=== PATIENT | female | born 1955 | race American Indian/Alaskan Native ===

== ENCOUNTER 2018-11-03 14:39 | Inpatient (IN) | payer SELFPAY ==
[2018-11-03 15:41] LABS: Basophils # (Auto) 0.1 K/mm3 (0.0-0.1); Basophils % (Auto) 1.9 % (0.0-1.8); Eosinophils # (Auto) 0.4 K/mm3 (0.0-0.4); Eosinophils % (Auto) 6.7 % (0.0-4.3); Hematocrit 38.8 % (30.3-42.9); Hemoglobin 12.8 gm/dl (10.1-14.3); Lymphocytes # (Auto) 2.5 K/mm3 (1.2-5.4); Lymphocytes % (Auto) 42.2 % (13.4-35.0); Mean Corpuscular HGB Conc 33 % (30-34); Mean Corpuscular Volume 89 fl (79-97); Monocytes # (Auto) 0.5 K/mm3 (0.0-0.8); Monocytes % (Auto) 8.2 % (0.0-7.3); Platelet Count 197 K/mm3 (140-440); Red Blood Count 4.34 M/mm3 (3.65-5.03); Red Cell Distribution Width 12.6 % (13.2-15.2)
[2018-11-03 15:50] LABS: INR 1.01 (0.87-1.13); Partial Thromboplastin Time 22.2 Sec. (24.2-36.6)
[2018-11-03 15:56] LABS: BUN/Creatinine Ratio 12; Blood Urea Nitrogen 11 mg/dL (7-17); Calcium 8.7 mg/dL (8.4-10.2); Hemolysis Index 20
--- NOTE | 2018-11-03 16:48 | Emergency Department Report ---
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 Patient lives in [facility] [place] and just came here arrived here from [facility] on 10/02/2013. For the past week she states she has been having intermittent chills and subjective fevers without actually taking her temperature. She says the left side of her body feels warm". She has baseline weakness on the right side has worsened for the past one week particularly the right lower extremity. Family friend at the bedside and who is translating has noticed more difficulty in ambulation this week. Patient complains of a dry cough and intermittent headache. Denies nausea, vomiting, or diarrhea. Patient does not take an aspirin daily given history of ulcer. Denies history of bleeding ulcer. Patient takes amlodipine 10 mg daily for hypertension. - Related Data Allergies Allergy/AdvReac Type Severity Reaction Status Date / Time NSAIDS (Non-Steroidal AdvReac Unknown Verified 11/03/18 15:05 Anti-Inflamma ED Review of Systems ROS: Stated complaint: LFT SIDE WARM/COLD/NAUSEA Other details as noted in HPI Comment: All other systems reviewed and negative ED Past Medical Hx - Past Medical History Hx Hypertension: Yes Hx CVA: Yes (2014) Hx GERD: Yes (ulcers) - Surgical History Past Surgical History?: No - Social History Smoking Status: Never Smoker Substance Use Type: None ED Physical Exam - General Limitations: No Limitations - Other Other exam information: General: No limitations, patient is alert in no acute distress Head exam: Atraumatic, normocephalic Eyes exam: Normal appearance, pupils equal reactive to light, extraocular movements intact ENT: Moist mucous membrane Neck exam: Normal inspection, full range of motion, no meningismus nontender Respiratory exam: Clear to auscultation bilateral, no wheezes, rales, crackles Cardiovascular: Normal rate and rhythm, normal heart sounds Abdomen: Soft, nondistended, and nontender, with normal bowel sounds, no rebound, or guarding Extremity: Full range of motion normal inspection no deformity Back: Normal Inspection, full range of motion, no tenderness Neurologic: Alert, oriented x3, cranial nerves intact, right-sided sided weakness and decreased sensation compared to the left side Psychiatric: normal affect, normal mood Skin: Warm, dry, intact ED Course Vital Signs 11/03/18 11/03/18 11/03/18 14:58 16:24 17:19 Temperature 98.9 F Pulse Rate 72 63 72 Respiratory 20 16 16 Rate Blood Pressure 179/84 Blood Pressure 173/68 170/76 [Left] O2 Sat by Pulse 98 99 99 Oximetry 11/03/18 11/03/18 19:13 19:34 Temperature 98.3 F Pulse Rate 61 Respiratory 17 17 Rate Blood Pressure Blood Pressure 169/76 [Left] O2 Sat by Pulse 99 99 Oximetry ED Medical Decision Making - Lab Data Result diagrams: 11/03/18 15:22 11/03/18 15:22 Lab Results 11/03/18 11/03/18 11/03/18 Range/Units 15:22 15:22 15:22 WBC 6.0 (4.5-11.0) K/mm3 RBC 4.34 (3.65-5.03) M/mm3 Hgb 12.8 (10.1-14.3) gm/dl Hct 38.8 (30.3-42.9) % MCV 89 (79-97) fl MCH 29 (28-32) pg MCHC 33 (30-34) % RDW 12.6 L (13.2-15.2) % Plt Count 197 (140-440) K/mm3 Lymph % (Auto) 42.2 H (13.4-35.0) % [place] % (Auto) 8.2 H (0.0-7.3) % Eos % (Auto) 6.7 H (0.0-4.3) % Baso % (Auto) 1.9 H (0.0-1.8) % Lymph # 2.5 (1.2-5.4) K/mm3 [place] # 0.5 (0.0-0.8) K/mm3 Eos # 0.4 (0.0-0.4) K/mm3 Baso # 0.1 (0.0-0.1) K/mm3 Seg Neutrophils % 41.0 (40.0-70.0) % Seg Neutrophils # 2.4 (1.8-7.7) K/mm3 PT 13.7 (12.2-14.9) Sec. INR 1.01 (0.87-1.13) APTT 22.2 L (24.2-36.6) Sec. Thrombin Time (15.1-19.6) Sec. Sodium 141 (137-145) mmol/L Potassium 4.6 (3.6-5.0) mmol/L Chloride 105.7 (98-107) mmol/L Carbon Dioxide 23 (22-30) mmol/L Anion Gap 17 mmol/L BUN 11 (7-17) mg/dL Creatinine 0.9 (0.7-1.2) mg/dL Estimated GFR > 60 ml/min BUN/Creatinine Ratio 12 % Glucose 140 H (65-100) mg/dL Calcium 8.7 (8.4-10.2) mg/dL Total Bilirubin (0.1-1.2) mg/dL Direct Bilirubin (0-0.2) mg/dL Indirect Bilirubin mg/dL AST (5-40) units/L ALT (7-56) units/L Alkaline Phosphatase (35-129) units/L Lactate Dehydrogenase (91-180) units/L Troponin T < 0.010 (0.00-0.029) ng/mL Total Protein (6.3-8.2) g/dL Albumin (3.9-5) g/dL Albumin/Globulin Ratio % Urine Color (Yellow) Urine Turbidity (Clear) Urine pH (5.0-7.0) Ur Specific [place] (1.003-1.030) Urine Protein (Negative) mg/dL Urine Glucose (UA) (Negative) mg/dL Urine Ketones (Negative) mg/dL Urine Blood (Negative) Urine Nitrite (Negative) Urine Bilirubin (Negative) Urine Urobilinogen (<2.0) mg/dL Ur Leukocyte Esterase (Negative) Urine WBC (Auto) (0.0-6.0) /HPF Urine RBC (Auto) (0.0-6.0) /HPF U Epithel Cells (Auto) (0-13.0) /HPF Influenza A (Rapid) (Negative) Influenza B (Rapid) (Negative) 11/03/18 11/03/18 11/03/18 Range/Units 15:22 15:22 16:50 WBC (4.5-11.0) K/mm3 RBC (3.65-5.03) M/mm3 Hgb (10.1-14.3) gm/dl Hct (30.3-42.9) % MCV (79-97) fl MCH (28-32) pg MCHC (30-34) % RDW (13.2-15.2) % Plt Count (140-440) K/mm3 Lymph % (Auto) (13.4-35.0) % [place] % (Auto) (0.0-7.3) % Eos % (Auto) (0.0-4.3) % Baso % (Auto) (0.0-1.8) % Lymph # (1.2-5.4) K/mm3 [place] # (0.0-0.8) K/mm3 Eos # (0.0-0.4) K/mm3 Baso # (0.0-0.1) K/mm3 Seg Neutrophils % (40.0-70.0) % Seg Neutrophils # (1.8-7.7) K/mm3 PT (12.2-14.9) Sec. INR (0.87-1.13) APTT (24.2-36.6) Sec. Thrombin Time 16.9 (15.1-19.6) Sec. Sodium (137-145) mmol/L Potassium (3.6-5.0) mmol/L Chloride (98-107) mmol/L Carbon Dioxide (22-30) mmol/L Anion Gap mmol/L BUN (7-17) mg/dL Creatinine (0.7-1.2) mg/dL Estimated GFR ml/min BUN/Creatinine Ratio % Glucose (65-100) mg/dL Calcium (8.4-10.2) mg/dL Total Bilirubin 0.20 (0.1-1.2) mg/dL Direct Bilirubin < 0.2 (0-0.2) mg/dL Indirect Bilirubin 0.0 mg/dL AST 19 (5-40) units/L ALT 12 (7-56) units/L Alkaline Phosphatase 91 (35-129) units/L Lactate Dehydrogenase 173 (91-180) units/L Troponin T (0.00-0.029) ng/mL Total Protein 7.4 (6.3-8.2) g/dL Albumin 4.3 (3.9-5) g/dL Albumin/Globulin Ratio 1.4 % Urine Color Straw (Yellow) Urine Turbidity Clear (Clear) Urine pH 8.0 H (5.0-7.0) Ur Specific [place] 1.008 (1.003-1.030) Urine Protein <15 mg/dl (Negative) mg/dL Urine Glucose (UA) Neg (Negative) mg/dL Urine Ketones Neg (Negative) mg/dL Urine Blood Neg (Negative) Urine Nitrite Neg (Negative) Urine Bilirubin Neg (Negative) Urine Urobilinogen < 2.0 (<2.0) mg/dL Ur Leukocyte Esterase Neg (Negative) Urine WBC (Auto) 1.0 (0.0-6.0) /HPF Urine RBC (Auto) 1.0 (0.0-6.0) /HPF U Epithel Cells (Auto) < 1.0 (0-13.0) /HPF Influenza A (Rapid) (Negative) Influenza B (Rapid) (Negative) 11/03/18 Range/Units 18:00 WBC (4.5-11.0) K/mm3 RBC (3.65-5.03) M/mm3 Hgb (10.1-14.3) gm/dl Hct (30.3-42.9) % MCV (79-97) fl MCH (28-32) pg MCHC (30-34) % RDW (13.2-15.2) % Plt Count (140-440) K/mm3 Lymph % (Auto) (13.4-35.0) % [place] % (Auto) (0.0-7.3) % Eos % (Auto) (0.0-4.3) % Baso % (Auto) (0.0-1.8) % Lymph # (1.2-5.4) K/mm3 [place] # (0.0-0.8) K/mm3 Eos # (0.0-0.4) K/mm3 Baso # (0.0-0.1) K/mm3 Seg Neutrophils % (40.0-70.0) % Seg Neutrophils # (1.8-7.7) K/mm3 PT (12.2-14.9) Sec. INR (0.87-1.13) APTT (24.2-36.6) Sec. Thrombin Time (15.1-19.6) Sec. Sodium (137-145) mmol/L Potassium (3.6-5.0) mmol/L Chloride (98-107) mmol/L Carbon Dioxide (22-30) mmol/L Anion Gap mmol/L BUN (7-17) mg/dL Creatinine (0.7-1.2) mg/dL Estimated GFR ml/min BUN/Creatinine Ratio % Glucose (65-100) mg/dL Calcium (8.4-10.2) mg/dL Total Bilirubin (0.1-1.2) mg/dL Direct Bilirubin (0-0.2) mg/dL Indirect Bilirubin mg/dL AST (5-40) units/L ALT (7-56) units/L Alkaline Phosphatase (35-129) units/L Lactate Dehydrogenase (91-180) units/L Troponin T (0.00-0.029) ng/mL Total Protein (6.3-8.2) g/dL Albumin (3.9-5) g/dL Albumin/Globulin Ratio % Urine Color (Yellow) Urine Turbidity (Clear) Urine pH (5.0-7.0) Ur Specific [place] (1.003-1.030) Urine Protein (Negative) mg/dL Urine Glucose (UA) (Negative) mg/dL Urine Ketones (Negative) mg/dL Urine Blood (Negative) Urine Nitrite (Negative) Urine Bilirubin (Negative) Urine Urobilinogen (<2.0) mg/dL Ur Leukocyte Esterase (Negative) Urine WBC (Auto) (0.0-6.0) /HPF Urine RBC (Auto) (0.0-6.0) /HPF U Epithel Cells (Auto) (0-13.0) /HPF Influenza A (Rapid) Negative (Negative) Influenza B (Rapid) Negative (Negative) - EKG Data -: EKG Interpreted by Nc EKG shows normal: sinus rhythm, axis (qrs -6), QRS complexes (qrsd 102), ST-T waves (no steim) Rate: bradycardia (59) - EKG Data When compared to previous EKG there are: previous EKG unavailable - Radiology Data Radiology results: report reviewed CT head: No acute intracranial findings. Chronic ischemic disease. Bifrontal areas of encephalomalacia may be related to prior trauma or chronic ischemia. Left maxillary sinus disease. FINAL REPORT EXAM: XR CHEST ROUTINE 2V HISTORY: cough TECHNIQUE: PA and lateral views of the chest PRIORS: None. FINDINGS: Lines, tubes, and devices: N/A Lungs and pleura: Trachea is normal in position. Lungs are clear of infiltrate, pleural effusion, vascular congestion, or pneumothorax. Cardiomediastinal silhouette: Cardiac and mediastinal silhouettes are unremarkable. Other: Bony structures are intact. IMPRESSION: No acute cardiopulmonary process seen. - Medical Decision Making Patient presents to the ED with worsening right-sided weakness compared to baseline. CT does show signs of ischemia. I'm unsure if patient has acute or chronic CVA symptoms. Patient also reports infectious symptoms. No signs of fever, leukocytosis, sepsis or identified source. Initial malaria smear is negative. Patient will be admitted to the hospitalist service for further evaluation secondary to reported worsening right-sided weakness. The patient did receive enteric-coated aspirin and Pepcid. - Differential Diagnosis viral syndrome, malaria, CVA, Critical Care Time: No Critical care attestation.: If time is entered above; I have spent that time in minutes in the direct care of this critically ill patient, excluding procedure time. ED Disposition Clinical Impression: Weakness of right side of body, History of CVA with residual deficit, HTN (hypertension), Viral infection, Left maxillary sinusitis Disposition: DC-09 OP ADMIT IP TO THIS HOSP Is pt being admited?: Yes Does the pt Need Aspirin: No Condition: Stable Time of Disposition: 19:37 (Dr Rahman/hosp) - Assessment Assessment Interval: Baseline - Level of Consciousness 1a. Level of Consciousness: alert/keenly responsive - LOC Questions 1b. LOC Questions: answers both correctly - LOC Command 1c. LOC Commands: performs tasks correctly - Best Gaze 2. Best Gaze: normal - Visual 3. Visual: no visual loss - Facial Palsy 4. Facial Palsy: normal symmetrical movement - Motor Arm 5b. Motor Arm Right: drift 5a. Motor Arm Left: no drift - Motor Leg 6b. Motor Leg Right: drift 6a. Motor Leg Left: no drift - Limb Ataxia 7. Limb Ataxia: present 1 limb - Sensory 8. Sensory: mild/moderate sensory loss - Best Language 9. Best Language: no aphasia - Dysarthria 10. Dysarthria: normal - Extinction and Inattention 11. Extinction/Inattention: no abnormality - Scoring Total Score: 4 Stroke Severity: Minor Stroke
--- NOTE | 2018-11-03 16:56 | Cat Scan Report ---
FINAL REPORT EXAM: CT HEAD/BRAIN WO CON HISTORY: neuro deficits <6hrs or sx present upon awakening TECHNIQUE: CT of the Head without IV contrast. PRIORS: None currently available. FINDINGS: Decreased attenuation regions in the periventricular and subcortical white matter are nonspecific and may represent small vessel ischemic disease, encephalopathy, edema, or a demyelinating process. Smal l vessel ischemic disease (leukoaroaiosis) favored. Vascular calcifications. Small focal areas in the right and left frontal lobes may be related to chronic ischemia or prior tra irene. There is no evidence for acute ischemia. There is no hemorrhage. There is no midline shift. There is no hydrocephalus. There is no mass. Age appropriate zavala-white matter attenuation is noted. There is no calvarial fracture. The temporal bones demonstrate aerated mastoid air cells. The middle ears appear unremarkable. Paranasal sinuses are unremarkable. Globes are intact. IMPRESSION: No acute intracranial findings. Chronic ischemic disease. Bifrontal areas of encephalomalacia may be related to prior trauma or chronic ischemia.
[2018-11-03 17:10] LABS: Alanine Aminotransferase 12 units/L (7-56); Albumin 4.3 g/dL (3.9-5)
[2018-11-03 17:20] LABS: Bilirubin,Direct < 0.2 mg/dL (0-0.2)
[2018-11-03 17:22] LABS: Bilirubin,Urine NEG (Negative); Blood,Urine NEG (Negative); Color,Urine Straw (Yellow); Protein,Urine <15 mg/dL mg/dL (Negative); Urobilinogen,Urine < 2.0 mg/dL (<2.0)
--- NOTE | 2018-11-03 18:30 | XRay Report ---
FINAL REPORT EXAM: XR CHEST ROUTINE 2V HISTORY: cough TECHNIQUE: PA and lateral views of the chest PRIORS: None. FINDINGS: Lines, tubes, and devices: N/A Lungs and pleura: Trachea is normal in position. Lungs are clear of infiltrate, pleural effusion, va scular congestion, or pneumothorax. Cardiomediastinal silhouette: Cardiac and mediastinal silhouettes are unremarkable. Other: Bony structures are intact. IMPRESSION: No acute cardiopulmonary process seen.
[2018-11-03] MEDS ORDERED: PEPCID IV ONE (19:40)
[2018-11-03] MEDS ORDERED: ECOTRIN PO ONE (19:40)
[2018-11-03] MEDS ORDERED: TYLENOL PO PRN (22:45)
[2018-11-03] MEDS ORDERED: ZOFRAN IV PRN (22:47)
[2018-11-04] MEDS ORDERED: PNEUMOVAX 23 IM ONE ×2 (06:00→12:00)
[2018-11-04] MEDS ORDERED: AFLURIA QUAD 2018-2019 SYRINGE IM ONE ×2 (06:00→12:00)
--- NOTE | 2018-11-04 08:24 | History and Physical Report ---
CHIEF COMPLAINT: Weakness on the right side of the body. OTHER COMPLAINT: Includes congestion. HISTORY OF PRESENT ILLNESS: The patient is a 63-year-old female with past history of cerebrovascular accident and right-sided weakness who came to the hospital complaining of worsening right-sided weakness and also upper respiratory tract infection symptoms like congestion and subjective fever as well as cough. There is no history of chest pain, but there is history of chills and fever. The patient also denied history of nausea or vomiting, and stated that the cough is dry. There is intermittent headache. PAST MEDICAL HISTORY: Pertinent for cerebrovascular accident with right-sided weakness, gastroesophageal reflux disease, and hypertension. PAST SURGICAL HISTORY: Unremarkable. FAMILY HISTORY: Noncontributory. SOCIAL HISTORY: The patient lives with family. Does not smoke, does not drink alcohol and does not use illicit drugs. MEDICATIONS: The patient's home medications are not known. ALLERGIES: THE PATIENT IS ALLERGIC TO NONSTEROIDAL ANTINFLAMMATORY AGENTS. REVIEW OF SYSTEMS: CONSTITUTIONAL: There is fever. There are chills. No diaphoresis. HEENT: There is headache with no sore throat. CARDIOVASCULAR SYSTEM: There is no chest pain or orthopnea. RESPIRATORY SYSTEM: There is dry cough with no shortness of breath. GASTROINTESTINAL SYSTEM: There is no nausea, no vomiting, no abdominal pain, diarrhea or constipation. NEUROLOGICAL SYSTEM: There is no numbness, no dizziness, no altered mental status. There is weakness on the right side of the body compared to the left. MUSCULOSKELETAL SYSTEM: There is no joint pain or swelling. DERMATOLOGICAL SYSTEM: There is no skin rash or itching. GENITOURINARY SYSTEM: There is no dysuria, hematuria or flank pain. Rest of system review is normal. PHYSICAL EXAMINATION: GENERAL: At the time of exam, the patient was found to be alert, oriented x 3, and not in acute distress. VITAL SIGNS: At the initial time of presentation show temperature of 98.9 degrees Fahrenheit, pulse of 72, respiration 20, blood pressure 179/84, O2 sat of 98% on room. HEENT: Show pupils to be equal, round, reactive to light and accommodating. Extraocular muscles are intact. NECK: Supple with no JVD or carotid bruit. CARDIOVASCULAR SYSTEM: Show normal first and second heart sounds with no gallops or murmurs. RESPIRATORY SYSTEM: Show good air entry on both sides of the lungs with no abnormal breath sounds. GASTROINTESTINAL SYSTEM: Show abdomen to be full, soft, nontender with no organomegaly or rigidity. NEUROLOGIC: Show weakness on the right side of the body compared to the left with muscle strength of 4/6 on the right compared to 6/6 on the left. There is no loss of sensory function. MUSCULOSKELETAL SYSTEM: Show no joint swelling or tenderness. DERMATOLOGICAL SYSTEM: Show no skin rash. GENITOURINARY SYSTEM: Showing no costovertebral angle tenderness. PERTINENT IMAGING STUDIES: The patient had chest x-ray done that showed no acute cardiopulmonary lesion. The patient also has CT of the head without contrast done that showed no acute intracranial findings, but there is finding of chronic ischemic disease and bifrontal area of encephalomalacia was found and the radiologist say may be related to prior trauma or chronic ischemia. There is also finding of left maxillary sinus disease. LABORATORY RESULTS: The patient has CBC done that came back unremarkable except for elevated lymphocyte count of 42.2% and elevated monocyte count of 8.2 and elevated eosinophil count of 6.7% on CBC differential. The patient's coagulation studies were unremarkable. Chemistry came back unremarkable. Urinalysis was unremarkable. Serology test for influenza came back negative. DIAGNOSES: 1. Right-sided weakness. 2. Viral infection. PLAN OF ACTION: 1. The patient will be admitted to telemetry. 2. The patient will have MRI of the brain without contrast done this morning. 3. The patient will have Neurology consult with Dr. Christina Chapman for worsening right-sided weakness and we will have physical therapy consult for evaluation and treatment. 4. The patient will be n.p.o. until swallow test is passed. 5. The patient will be on p.r.n. medications like Tylenol 650 mg by mouth every 4 hours for fever and headache and will be on IV Zofran 4 mg every 8 hours for nausea and vomiting. The patient will also be on Robitussin 200 mg every 4 hours as needed for cough. 6. The patient's home medications will be started after they are known and reconciled. The patient will continue on oxygen by nasal cannula at 2 liter per minute. JOB# [id number] OCN/NTS
[2018-11-04] MEDS ORDERED: ROBITUSSIN PO PRN (09:00)
--- NOTE | 2018-11-04 12:52 | Progress Note ---
Assessment and Plan Assessment and plan: --Acute CVA vs Ac on chronic CVA: Patient not a candidate for TPA Aspirin and statin, neuro workup is in progress Physical therapy and occupational therapy rehabilitation Neurology following Workup so far MRI brain; no evidence of subacute acute infarct or hemorrhage, chronic infarcts noted, extensive bilateral chronic white matter disease, mild global atrophy, mild bilateral maxillary sinusitis MRA head without contrast; evidence of right MCA SUBGRADE TESTER atherosclerotic disease small-caliber left foot laterally which is most likely secondary to proximal stenosis CT head without contrast; no acute intracranial abnormality chronic ischemic changes bilateral areas of white matter microangiopathy may be related to prior trauma or chronic ischemia Carotid Doppler; Echocardiogram; --Bilateral maxillary sinusitis; supportive care, amoxicillin and antihistamines --Hypertension; moderate control, continue current antihypertensives and when necessary medications --DVT prophylaxis; Lovenox --DC planning. Case management Closely monitor the patient and adjust management as needed Possible discharge in 1-2 days if stable Plan of care reviewed through a bilingual family member Answered all their questions History Interval history: Patient seen and examined and medical records reviewed Admitted with acute CVA and right-sided weakness Patient feels slightly better Complains of mild headache, denies chest pain or shortness of breath Neuro workup is in progress Vital signs noted Hospitalist Physical - Constitutional Vitals: Temp Pulse Resp BP Pulse Ox 98.1 F 54 L 18 150/77 96 11/04/18 08:01 11/04/18 08:01 11/04/18 08:01 11/04/18 08:01 11/04/18 08:01 General appearance: Present: no acute distress, well-nourished - EENT Eyes: Present: PERRL, EOM intact - Neck Neck: Present: supple, normal ROM - Respiratory Respiratory effort: normal Respiratory: bilateral: diminished, negative: rales, rhonchi, wheezing - Cardiovascular Rhythm: regular Heart Sounds: Present: S1 & S2 - Extremities Extremities: no ischemia, No edema - Abdominal General gastrointestinal: soft, non-tender, non-distended, normal bowel sounds - Integumentary Integumentary: Present: clear, warm - Psychiatric Psychiatric: appropriate mood/affect, cooperative - Neurologic Neurologic: moves all extremities (right-sided weakness, speech clear) Results - Labs CBC & Chem 7: 11/03/18 15:22 11/03/18 15:22 Labs: Laboratory Last Values WBC 6.0 K/mm3 (4.5-11.0) 11/03/18 15:22 RBC 4.34 M/mm3 (3.65-5.03) 11/03/18 15:22 Hgb 12.8 gm/dl (10.1-14.3) 11/03/18 15:22 Hct 38.8 % (30.3-42.9) 11/03/18 15:22 MCV 89 fl (79-97) 11/03/18 15:22 MCH 29 pg (28-32) 11/03/18 15:22 MCHC 33 % (30-34) 11/03/18 15:22 RDW 12.6 % (13.2-15.2) L 11/03/18 15: Plt Count 197 K/mm3 (140-440) 11/03/18 15:22 Lymph % (Auto) 42.2 % (13.4-35.0) H 11/03/18 15:22 [place] % (Auto) 8.2 % (0.0-7.3) H 11/03/18 15:22 Eos % (Auto) 6.7 % (0.0-4.3) H 11/03/18 15:22 Baso % (Auto) 1.9 % (0.0-1.8) H 11/03/18 15:22 Lymph # 2.5 K/mm3 (1.2-5.4) 11/03/18 15:22 [place] # 0.5 K/mm3 (0.0-0.8) 11/03/18 15:22 Eos # 0.4 K/mm3 (0.0-0.4) 11/03/18 15:22 Baso # 0.1 K/mm3 (0.0-0.1) 11/03/18 15:22 Seg Neutrophils % 41.0 % (40.0-70.0) 11/03/18 15: Seg Neutrophils # 2.4 K/mm3 (1.8-7.7) 11/03/18 15:22 PT 13.7 Sec. (12.2-14.9) 11/03/18 15:22 INR 1.01 (0.87-1.13) 11/03/18 15:22 APTT 22.2 Sec. (24.2-36.6) L 11/03/18 15:22 Thrombin Time 16.9 Sec. (15.1-19.6) 11/03/18 15:22 Sodium 141 mmol/L (137-145) 11/03/18 15:22 Potassium 4.6 mmol/L (3.6-5.0) 11/03/18 15:22 Chloride 105.7 mmol/L (98-107) 11/03/18 15:22 Carbon Dioxide 23 mmol/L (22-30) 11/03/18 15:22 Anion Gap 17 mmol/L 11/03/18 15:22 BUN 11 mg/dL (7-17) 11/03/18 15:22 Creatinine 0.9 mg/dL (0.7-1.2) 11/03/18 15:22 Estimated GFR > 60 ml/min 11/03/18 15:22 BUN/Creatinine Ratio 12 % 11/03/18 15:22 Glucose 140 mg/dL (65-100) H 11/03/18 15:22 Calcium 8.7 mg/dL (8.4-10.2) 11/03/18 15:22 Total Bilirubin 0.20 mg/dL (0.1-1.2) 11/03/18 15:22 Direct Bilirubin < 0.2 mg/dL (0-0.2) 11/03/18 15:22 Indirect Bilirubin 0.0 mg/dL 11/03/18 15:22 AST 19 units/L (5-40) 11/03/18 15:22 ALT 12 units/L (7-56) 11/03/18 15:22 Alkaline Phosphatase 91 units/L (35-129) 11/03/18 15:22 Lactate Dehydrogenase 173 units/L (91-180) 11/03/18 15:22 Troponin T < 0.010 ng/mL (0.00-0.029) 11/03/18 15:22 Total Protein 7.4 g/dL (6.3-8.2) 11/03/18 15:22 Albumin 4.3 g/dL (3.9-5) 11/03/18 15:22 Albumin/Globulin Ratio 1.4 % 11/03/18 15:22 Urine Color Straw (Yellow) 11/03/18 16:50 Urine Turbidity Clear (Clear) 11/03/18 16:50 Urine pH 8.0 (5.0-7.0) H 11/03/18 16:50 Ur Specific [place] 1.008 (1.003-1.030) 11/03/18 16:50 Urine Protein <15 mg/dl mg/dL (Negative) 11/03/18 16:50 Urine Glucose (UA) Neg mg/dL (Negative) 11/03/18 16:50 Urine Ketones Neg mg/dL (Negative) 11/03/18 16:50 Urine Blood Neg (Negative) 11/03/18 16:50 Urine Nitrite Neg (Negative) 11/03/18 16:50 Urine Bilirubin Neg (Negative) 11/03/18 16:50 Urine Urobilinogen < 2.0 mg/dL (<2.0) 11/03/18 16:50 Ur Leukocyte Esterase Neg (Negative) 11/03/18 16:50 Urine WBC (Auto) 1.0 /HPF (0.0-6.0) 11/03/18 16:50 Urine RBC (Auto) 1.0 /HPF (0.0-6.0) 11/03/18 16:50 U Epithel Cells (Auto) < 1.0 /HPF (0-13.0) 11/03/18 16:50 Influenza A (Rapid) Negative (Negative) 11/03/18 18:00 Influenza B (Rapid) Negative (Negative) 11/03/18 18:00
--- NOTE | 2018-11-04 13:16 | Magnetic Resonance Report ---
MRI BRAIN WITHOUT CONTRAST: 11/04/18 CLINICAL: Right-sided weakness. COMPARISON: CT head 11/03/18 TECHNIQUE: Axial diffusion, T1, T2, gradient echo T2*, coronal and axial FLAIR and sagittal T1 sequences on a 1.5 Ana magnet. FINDINGS: The ventricles and sulci are slightly large for age. No restricted diffusion. Encephalomalacia involving the superior frontal gyrus of the left frontal lobe and extensive bilateral periventricular and subcortical white matter hyperintensities on FLAIR and T2. Right cerebellar atrophy and a few small chronic lacunar infarcts of the right cerebellum. No chronic microbleeds on the gradient echo sequence. No mass or mass effect. No hemorrhage, edema or extra-axial collection. The pituitary is small and the sella turcica is filled with CSF. The brainstem is normal. Intact vascular flow voids. Partial opacification of the left maxillary sinus and mild mucoperiosteal thickening of the right maxillary sinus. The orbits, and soft tissues are normal. Normal calvarium and skull base. IMPRESSION: 1. No evidence of acute/subacute infarct or hemorrhage. 2. Chronic infarct of the left frontal lobe involving the superior frontal gyrus. 3. Chronic lacunar infarcts of the right cerebellum and right cerebellar atrophy. 4. Extensive bilateral chronic white matter microangiopathy. 5. Mild global cortical atrophy. 6. Mild bilateral maxillary sinusitis.
--- NOTE | 2018-11-04 13:38 | Consultation ---
History of Present Illness Consult date: 11/04/18 Requesting physician: PADMINI CASTILLO Reason for Consult: increased right sided weakness History of present illness: 63 yr old female from [facility], presents with hx of stroke in 2015, which left her with a rt. hemiparesis, from which she recovered. Per her relative who is translating, she has had an increase in right-sided weakness over the past week, especially with more difficulty walking. She has had no falls. She takes her blood pressure medication only sporadically, if she feels a headache or other symptoms. She has no other medical problems. She has also complained of a feeling of heat going down the left side of her body. The pt. denies swallowing difficulty, dizziness, vertigo, numbness of face or extremities, chest pain or palpitations. Past History Past Medical History: hypertension Past Surgical History: No surgical history Social history: lives with family Family history: no significant family history Medications and Allergies Allergies Allergy/AdvReac Type Severity Reaction Status Date / Time NSAIDS (Non-Steroidal AdvReac Unknown Verified 11/03/18 15:05 Anti-Inflamma Home Medications Medication Instructions Recorded Confirmed Last Taken Type Amlodipine Besylate 10 mg PO BID 11/03/18 11/03/18 1 Day Ago History ~11/02/18 Active Meds: Active Medications Acetaminophen (Tylenol) 650 mg PO Q4H PRN PRN Reason: Fever >101 Atorvastatin Calcium (Lipitor) 40 mg PO QHS CANDICE Guaifenesin (Robitussin) 200 mg PO Q4H PRN PRN Reason: Cough Ondansetron HCl (Zofran) 4 mg IV Q8H PRN PRN Reason: Nausea And Vomiting Review of Systems All systems: negative (positive tinnitus) Physical Examination - Vital Signs Vital Signs: Vital Signs Temp Pulse Resp BP Pulse Ox 98.9 F 72 20 179/84 98 11/03/18 14:58 11/03/18 14:58 11/03/18 14:58 11/03/18 14:58 11/03/18 14:58 - Physical Exam Narrative exam: Neurological exam - Speech fluent in assinibo[place] and sioux language, per scheduling manager. computer systems technician - EOMs full, no nystagmus. Face with mild asymmetry, V-1 thru V-3 intact bilaterally. Hearing decreased in both ears, tongue midline. Motor - 5/5 on left. Right - finger extensors and intrinsic hand muscles - 4- /5. wrist extensors - 4/5. Deltoids - 3-/5 RLE - iliopsoas - 4/5, foot dorsiflexors - 4/5, plantar flexors - 4/5. ( Pt. gives questionable effort) Reflexes - trace throughout. Sensory - intact to touch and pin. Cerebellar - intact FTN, Mitesh, fine finger movements are slow on the right. Needs assistance to stand. Takes cautious steps. - Assessment Assessment Interval: Baseline - Level of Consciousness 1a. Level of Consciousness: alert/keenly responsive - LOC Questions 1b. LOC Questions: answers both correctly - LOC Command 1c. LOC Commands: performs tasks correctly - Best Gaze 2. Best Gaze: normal - Visual 3. Visual: no visual loss - Facial Palsy 4. Facial Palsy: normal symmetrical movement - Motor Arm 5b. Motor Arm Right: drift - Motor Leg 6a. Motor Leg Left: no drift - Limb Ataxia 7. Limb Ataxia: present 1 limb - Sensory 8. Sensory: mild/moderate sensory loss - Best Language 9. Best Language: no aphasia - Dysarthria 10. Dysarthria: normal - Extinction and Inattention 11. Extinction/Inattention: no abnormality Results - Laboratory Findings CBC and BMP: 11/03/18 15:22 11/03/18 15:22 Abnormal Lab Findings: Abnormal Labs 11/03/18 11/03/18 11/03/18 15:22 15:22 15:22 RDW 12.6 L Lymph % (Auto) 42.2 H [place] % (Auto) 8.2 H Eos % (Auto) 6.7 H Baso % (Auto) 1.9 H APTT 22.2 L Glucose 140 H Urine pH 11/03/18 16:50 RDW Lymph % (Auto) [place] % (Auto) Eos % (Auto) Baso % (Auto) APTT Glucose Urine pH 8.0 H Assessment and Plan 63 yr old female from [facility], presented to ER because of progressive weakness in the rt. extremities and difficulty walking. She has had a prior stroke which affected her rt. side in 2014 MRI scan confirms multiple lacunes including one in the left frontal lobe, most likely affecting her right side. There is also extensive small vessel disease. No signs of acute ischemia, however. The pt. may have slightly extended the previous infarct, but she also seems quite deconditioned.and in need of therapy. Plan - PT/OT coated aspirin and atorvastatin. encourage her to take her blood pressure meds. daily.
--- NOTE | 2018-11-04 15:00 | Magnetic Resonance Report ---
MRA HEAD WITHOUT CONTRAST: 11/03/18 19:41:00 CLINICAL: Right body weakness. TECHNIQUE: Axial 3-D [id number] MR angiography of the zuni of [place] with review of axial source images. FINDINGS: Intact zuni of [place] with no aneurysm or occlusion. A right proximal MCA stenosis with poststenotic dilatation. The left MARY A1 segment is hypoplastic. Relatively symmetric blood flow in the anterior and middle cerebral arteries. The right SUBJECT SCIENTIFIC RESEARCH is smaller than the left. Normal basilar and right vertebral arteries. The left vertebral artery is small. IMPRESSION: Evidence of right MCA and SUBJECT SCIENTIFIC RESEARCH atherosclerotic disease. Small caliber left vertebral artery which is most likely secondary to a proximal stenosis.
[2018-11-04] MEDS: TRIMOX PO SCH (21:43)
[2018-11-04] MEDS ORDERED: LOVENOX SUB-Q SCH (22:00)
[2018-11-05] MEDS: TRIMOX PO SCH (05:47)
[2018-11-05 08:45] VITALS: BP 130/81
[2018-11-05] MEDS ORDERED: ASPIRIN PO SCH (10:00)
[2018-11-05 10:02] LABS: Chol/HDL Ratio 3.92 %
--- NOTE | 2018-11-05 13:25 | Vascular Lab Report ---
FINAL REPORT EXAM: VL CAROTID DUPLEX BILAT HISTORY: possible CVA , previous CVA 2 years ago, hypertension TECHNIQUE: Ultrasound duplex arterial examination of the right neck vasculature Ultrasound duplex arterial examination of the left neck vasculature Degree of carotid stenosis calculated by indirect methods via the peak systolic velocities of the ICA and CCA and reference with the society of Radiologist and Ultrasound consensus conference radiology 2003. PRIORS: None. FINDINGS: Intimal thickening is noted bilaterally throughout the carotid artery system but no significant plaqu e or calcification is demonstrated. Peak systolic CCA and ICA velocities are within normal limits bilaterally. Estimated stenosis 0 to 49 %. ICA/CCA peak systolic ratios are within normal limits. Right ratio: 0.81 Left ratio: 1.65 No evidence of aneurysm or occlusion. Flow is antegrade in both vertebral arteries. IMPRESSION: Bilateral carotid artery atherosclerotic change with intimal thickening Less than 50 % ICA and CCA carotid stenosis by above-described criteria
--- NOTE | 2018-11-05 14:04 | Discharge Summary ---
Providers - Providers Date of Admission: 11/03/18 19:41 Date of discharge: 11/05/18 Attending physician: PADMINI CASTILLO 11/04/18 06:00 Consult to Physician [CONS] Routine Comment: GAIL Consulting Provider: BRAYAN ALANIZ Physician Instructions: NAMAN WAS NOTIFIED Reason For Exam: WORSENING RIGHT SIDED WEAKNESS Physical Therapy Evaluation and Treat [CONS] Routine Comment: Reason For Exam: WORSENING RIGHT SIDED WEAKNESS Primary care physician: ASSISTANT OCEANOGRAPHER Hospitalization Reason for admission: right-sided weakness Condition: Stable Pertinent studies: Workup so far MRI brain; no evidence of subacute acute infarct or hemorrhage, chronic infarcts noted, extensive bilateral chronic white matter disease, mild global atrophy, mild bilateral maxillary sinusitis MRA head without contrast; evidence of right MCA [facility] atherosclerotic disease small-caliber left foot laterally which is most likely secondary to proximal stenosis CT head without contrast; no acute intracranial abnormality chronic ischemic changes bilateral areas of white matter microangiopathy may be related to prior trauma or chronic ischemia Carotid Doppler; no hemodynamically significant stenosis Echocardiogram; 50-55% LVEF, mild LVH Hospital course: 63-year-old female patient from [place] visiting her family here, with history of CVA with right-sided weakness was admitted through emergency room with worsening of right-sided weakness Patient was not a candidate for TPA, admitted managed with aspirin and statin Extensive neuro workup is negative for acute abnormality, patient received physical therapy occupational therapy and therapy, no acute needs , no PT recommended, Patient's symptoms signi ficantly improved, patient is ambulatory and tolerating oral nutrition, The findings are probably secondary to TIA, Elevated LDL, on Lipitor, Today patient is comfortable in no new complaints, Vital signs stable, speech clear, ambulatory without support Hemodynamically and clinically stable at discharge, Patient had sinusitis; managed with amoxicillin Advised to follow with primary care physician and neurology for further evaluation and management Discharge diagnosis; --Acute TIA Patient not a candidate for TPA Aspirin and statin, , workup no acute abnormality noted Follow neurology upon discharge --Bilateral maxillary sinusitis; amoxicillin and antihistamines --Hypertension; moderate control, --Dyslipidemia; statin Patient is hemodynamically and clinically stable at discharge Disposition: TO HOME OR SELFCARE Time spent for discharge: 32 min Core Measure Documentation - Palliative Care Palliative Care/ Comfort Measures: Not Applicable - Core Measures Any of the following diagnoses?: none Exam - Constitutional Vitals: Temp Pulse Resp BP Pulse Ox 98.3 F 78 20 130/81 98 11/05/18 08:00 11/05/18 08:00 11/05/18 08:00 11/05/18 08:00 11/05/18 09:48 General appearance: Present: no acute distress, well-nourished - EENT Eyes: Present: PERRL, EOM intact - Neck Neck: Present: supple, normal ROM - Respiratory Respiratory effort: normal Respiratory: bilateral: diminished, negative: rales, rhonchi, wheezing - Cardiovascular Rhythm: regular Heart Sounds: Present: S1 & S2 - Extremities Extremities: no ischemia, No edema - Abdominal General gastrointestinal: Present: soft, non-tender, non-distended, normal bowel sounds - Integumentary Integumentary: Present: clear, warm - Musculoskeletal Musculoskeletal: right sided weakness (mild weakness from old stroke) - Psychiatric Psychiatric: appropriate mood/affect, cooperative - Neurologic Neurologic: moves all extremities (residual weakness from her old stroke) Plan Activity: advance as tolerated, fall precautions Diet: other (cardiac diet) Additional Instructions: Follow-up primary care physician or [facility] in 1-2 weeks. Fall Precautions. Use cane while walking if needed Follow up with: PRIMARY CAREMD [Primary Care Provider] - 3-5 Days ALEAH DOBBS MD [Staff Physician] - 7 Days Prescriptions: Amoxicillin [Trimox CAP] 500 mg PO Q8HR #15 capsule Aspirin [Aspirin BABY CHEW TAB] 81 mg PO QDAY #30 tab.chew AtorvaSTATin [Lipitor] 40 mg PO QHS #30 tablet
== END 2018-11-05 15:55 | disposition home health service (06) | DRG 69 ==
LOC: ED 14:39 → 2B-ACE 19:41
PROVIDERS: ADMIT Internal Medicine; ATTEND Internal Medicine
PROC: 3E0234Z Introduction of Serum, Toxoid and Vaccine into Muscle, Percutaneous Approach (ICD-10-PCS; principal; 2018-11-04)
DX: G45.9 Transient cerebral ischemic attack, unspecified (principal); I69.351 Hemiplegia and hemiparesis following cerebral infarction affecting right dominant side; J32.0 Chronic maxillary sinusitis; B34.9 Viral infection, unspecified; I10 Essential (primary) hypertension; K21.9 Gastro-esophageal reflux disease without esophagitis; Z88.8 Allergy status to other drugs, medicaments and biological substances; Z79.899 Other long term (current) drug therapy; Z23 Encounter for immunization
CPT/HCPCS: 36415; 70450; 70544; 70551; 71046; 80048; 80061; 80076; 81001; 82962; 83615; 84484; 85025; 85610; 85670; 85730; 87207; 87400; 90686; 90732; 93005; 93010; 93306; 93880; 96374; G0378; A9270-GY; J1650

== ENCOUNTER 2018-11-15 15:40 | Emergency (ER) | payer OTHER ==
[2018-11-15] MEDS ORDERED: CATAPRES PO ONE (16:16)
--- NOTE | 2018-11-15 16:21 | Emergency Department Report ---
ED General Adult HPI - General Chief complaint: High BP Stated complaint: HYPERTENSION Time Seen by Provider: 11/15/18 16:12 Source: family, groundwater consultant Mode of arrival: Ambulatory Limitations: Language Barrier - History of Present Illness Initial comments: Patient is a 63-year-old female past medical history of high blood pressure and stroke who presents with elevated blood pressure. Patient was referred by home health nurse for elevated blood pressure. Patient stated she had a mild headache to 10 history is obtained by patient's family member. Patient currently has no complaints at this time. - Related Data Previous Rx's Medication Instructions Recorded Last Taken Type Amoxicillin [Trimox CAP] 500 mg PO Q8HR #15 capsule 11/05/18 Unknown Rx Aspirin [Aspirin BABY CHEW TAB] 81 mg PO QDAY #30 tab.chew 11/05/18 Unknown Rx AtorvaSTATin [Lipitor] 40 mg PO QHS #30 tablet 11/05/18 Unknown Rx Amlodipine Besylate 10 mg PO BID 60 Days 11/15/18 Unknown Rx Lisinopril/Hydrochlorothiazide 1 tab PO QDAY #60 tab 11/15/18 Unknown Rx [Zestoretic 20-25 mg] Allergies Allergy/AdvReac Type Severity Reaction Status Date / Time NSAIDS (Non-Steroidal AdvReac Unknown Verified 11/03/18 15:05 Anti-Inflamma ED Review of Systems ROS: Stated complaint: HYPERTENSION Other details as noted in HPI Constitutional: denies: chills, fever Eyes: denies: eye pain, eye discharge, vision change ENT: denies: ear pain, throat pain Respiratory: denies: cough, shortness of breath, wheezing Cardiovascular: denies: chest pain, palpitations Endocrine: no symptoms reported Gastrointestinal: denies: abdominal pain, nausea, diarrhea Genitourinary: denies: urgency, dysuria, discharge Musculoskeletal: denies: back pain, joint swelling, arthralgia Skin: denies: rash, lesions Neurological: headache. denies: weakness, paresthesias Psychiatric: denies: anxiety, depression Hematological/Lymphatic: denies: easy bleeding, easy bruising ED Past Medical Hx - Past Medical History Previous Medical History?: Yes Hx Hypertension: Yes Hx CVA: Yes (2015) Hx GERD: Yes (ulcers) Hx Headaches / Migraines: Yes (chronic) - Surgical History Past Surgical History?: No - Social History Smoking Status: Never Smoker Substance Use Type: None - Medications Home Medications: Home Medications Medication Instructions Recorded Confirmed Last Taken Type Amoxicillin [Trimox CAP] 500 mg PO Q8HR #15 capsule 11/05/18 11/15/18 Unknown Rx Aspirin [Aspirin BABY CHEW TAB] 81 mg PO QDAY #30 tab.chew 11/05/18 11/15/18 Unknown Rx AtorvaSTATin [Lipitor] 40 mg PO QHS #30 tablet 11/05/18 11/15/18 Unknown Rx Amlodipine Besylate 10 mg PO BID 60 Days 11/15/18 Unknown Rx Lisinopril/Hydrochlorothiazide 1 tab PO QDAY #60 tab 11/15/18 Unknown Rx [Zestoretic 20-25 mg] ED Physical Exam - General Limitations: Language Barrier General appearance: alert, in no apparent distress - Head Head exam: Present: atraumatic, normocephalic - Eye Eye exam: Present: normal appearance - ENT ENT exam: Present: mucous membranes moist - Neck Neck exam: Present: normal inspection - Respiratory Respiratory exam: Present: normal lung sounds bilaterally. Absent: respiratory distress - Cardiovascular Cardiovascular Exam: Present: regular rate, normal rhythm. Absent: systolic murmur, diastolic murmur, rubs, gallop - GI/Abdominal GI/Abdominal exam: Present: soft, normal bowel sounds - Extremities Exam Extremities exam: Present: normal inspection - Back Exam Back exam: Present: normal inspection - Neurological Exam Neurological exam: Present: alert, oriented X3, other (right hemiparesis) - Psychiatric Psychiatric exam: Present: normal affect, normal mood - Skin Skin exam: Present: warm, dry, intact, normal color. Absent: rash ED Course Vital Signs 11/15/18 11/15/18 15:46 16:46 Temperature 98.9 F 98.4 F Pulse Rate 89 66 Respiratory 16 18 Rate Blood Pressure 181/81 Blood Pressure 174/69 [Right] O2 Sat by Pulse 98 100 Oximetry ED Medical Decision Making - Medical Decision Making Chief medical diagnosis: Essential hypertension\ Branch medical diagnosis: Tension headache, medication ran out Patient is blood pressure currently right now is 170/64 she is asymptomatic I will send patient home with Norvasc and hydrochlorothiazide and lisinopril. Patient states that since she came from [place] she has been out of her blood pressure medicines. Discussed plan with patient's family the degree with discharge. Additional verbal discharge instructions were given Critical care attestation.: If time is entered above; I have spent that time in minutes in the direct care of this critically ill patient, excluding procedure time. ED Disposition Clinical Impression: Tension headache HTN (hypertension) Qualifiers: Hypertension type: essential hypertension Qualified Code(s): I10 - Essential (primary) hypertension Disposition: TO HOME OR SELFCARE Is pt being admited?: No Does the pt Need Aspirin: No Condition: Stable Instructions: Hypertension (ED) Prescriptions: Amlodipine Besylate 10 mg PO BID 60 Days Lisinopril/Hydrochlorothiazide [Zestoretic 20-25 mg] 1 tab PO QDAY #60 tab
[2018-11-15] MEDS ORDERED: PEPCID PO ONE (17:03)
[2018-11-15] MEDS ORDERED: LIDOCAINE VISCOUS 2% PO ONE (17:03)
[2018-11-15] MEDS ORDERED: PEPTO BISMOL PO ONE (18:00)
[2018-11-15 19:29] VITALS: BP 168/72
== END 2018-11-15 18:30 | disposition home or self-care (01) ==
LOC: ED 15:40
DX: I10 Essential (primary) hypertension (principal); G44.209 Tension-type headache, unspecified, not intractable; K21.9 Gastro-esophageal reflux disease without esophagitis; G43.909 Migraine, unspecified, not intractable, without status migrainosus
CPT/HCPCS: 93005; 93010